=== PATIENT | male | born 1960 ===

== ENCOUNTER 2025-02-21 07:59 | Outpatient (AMB) | payer OTHER, SELFPAY ==
--- OUTSIDE RECORDS SUMMARY | 2025-02-21 08:05 | XMS_ITS | Clinical Summary ---
Author Organization [place] [id number] Address [address] [place] [phone] Phone Care Team Providers Care Fruit Grower Name Role Phone Diaz Jennings Primary Care Provider [phone] Allergies No known active allergies Medications atorvastatin (LIPITOR) 10 mg tablet Take 1 tablet (10 mg total) by mouth 1 (one) time each day. 90 tablet 3 12/13/2024 Active metoprolol succinate (TOPROL-XL) 50 mg 24 hr tablet Take 1 tablet (50 mg total) by mouth 1 (one) time each day. Do not crush or chew. 90 tablet 3 12/13/2024 Active lisinopril (PRINIVIL,ZESTRI L) 40 mg tablet Take 1 tablet (40 mg total) by mouth 1 (one) time each day. 30 each 5 12/13/2024 5 Active hydroCHLOROthiaz jonel (HYDRODIURIL) 25 mg tablet Take 1 tablet (25 mg total) by mouth 1 (one) time each day. 30 each 5 12/13/2024 5 Active cyclobenzaprine (FLEXERIL) 10 mg tablet Take 1 tablet (10 mg total) by mouth 2 (two) times a day if needed for muscle spasms for up to 5 days. 10 tablet 01/06/2025 Active Active Problems Problem Noted Date Diagnosed Date HTN (hypertension) 07/21/2024 Glaucoma 07/21/2024 Sebaceous cyst 07/21/2024 Overview (07/21/2024): scalp Prediabetes 07/21/2024 Sleep apnea 01/13/2020 Overview (07/21/2024): 01/21/2022 Home Sleep Study Shows findings consistant with severe sleep apnea and AHI 51 events per hour. His avrage oxygen was 94% but oxygen desi 78%. Patient had oxygen <88% more then 5% of the study. Last Assessment & Plan: Veena will use CPAP 6-9cm through [facility]. Dyslipidemia 02/26/2017 Nephrolithiasis 03/04/2013 Encounters Date Type Department Care Team Description 01/10/2025 9:45 AM EDT Office Visit Adult Medicine [address] [phone] Trudi Cunha PA Primary hypertension (Primary Dx); Prediabetes; Dyslipidemia; Sleep apnea, unspecified type; Screening for malignant neoplasm of colon 01/06/2025 7:02 AM EDT - 01/06/2025 8:29 AM EDT Emergency [facility] Emergency [address] [place] [address] Neck pain (Primary Dx) Discharge Disposition: Home or Self Care 12/13/2024 8:00 AM EST Office Visit Adult [address] [phone] Diaz Jennings PA Primary hypertension (Primary Dx); Screening for malignant neoplasm of colon; Nephrolithiasis; Prediabetes; Dyslipidemia; Sleep apnea, unspecified type; Need for prophylactic vaccination and inoculation against influenza from Last 3 Months Immunizations Name Administration Dates Next Due Influenza Quadravalent, MDCK , 0.5ml, preservative free (Flucelvax) 6mo and older 08/08/2021,07/17/2020,10/25/2019 Influenza trivalent, 0.5mL, preservative free (Fluarix; FluLaval; Fluzone) ages 6mo and older (Afluria) 3 years and older 07/17/2016 Influenza trivalent, MDCK, 0 .5mL, preservative free (Flucelvax) 6mo and older 12/13/2024 Influenza trivalent, with pr eservative (Fluzone; Afluria) 6mo and older 07/25/2015,07/22/2014,08/05/2013 Influenza, Unspecified 07/26/2016,12/02/2012 Pfizer SARS-CoV-2 COVID-19, mRNA, LNP-S, preservative free 03/02/2021,02/10/2021 Td Tetanus diptheria (Tdvax) 7yo and older 03/14 Tdap Tetanus diptheria acell ular pertussis (Boostrix; Adacel) 7yo and older 03/04/2013 Zoster recombinant (Shingrix ) 19yo and older 02/15/2018 Surgical History Surgery Date Site/Laterality Comments CHOLECYSTECTOMY 2011 PROCEDURE: HISTORICAL CHOLECYSTECTOMY COLONOSCOPY 03/25/13 PROCEDURE: HISTORICAL COLONOSCOPY; COMMENT: tics; repeat in ten yrs Medical History Medical History Date Comments HTN (hypertension) DX:HTN (hyper tension) Historical Medical DX DX:Cyst; C OMMENT: scalp Glaucoma DX:Glaucoma Nephrolithiasis 03/04/2013 DX:Nephrolithias is Dyslipidemia 02/26/2017 DX:Dyslipidemia Prediabetes DX:Prediabetes Sleep apnea 01/13/2020 DX:Sleep apnea Family History Medical History Relation Name Comments Other: denies Other Relation Name Status Comments Brother 1 Alive Brother 2 Alive Brother 3 Alive Brother 4 Alive Brother 5 Alive Brother 6 Alive Brother 7 Alive Brother 8 Alive Brother 9 Alive Brother 10 Alive Brother 11 Alive Father Alive Mother Alive Other Sister 1 Alive Sister 2 Alive Sister 3 Alive Sister 4 Alive Sister 5 Alive Social History Tobacco Use Types Packs/Day Years Used Date Smoking Tobacco: Never Smokeless Tobacco: Never Tobacco Cessation:Counseling Given: Not Answered Alcohol Use Standard Drinks/Week Comments No 0 (1 standard drink = 0.6 oz pur e alcohol) Housing Instability Answer Date Recorde d Are you worried that in the next 2 months you may not have stable housing? No 01/10/2025 Food Access & Nutrition Answer Date Rec orded Do you have access to a vari ety of food including fruits and vegetables? Yes 01/10/2025 Access to Healthcare Answer Date Record ed Within the last 3 months, ho w many times did you visit the emergency department for your medical care? 1 01/10/2025 Health Literacy Answer Date Recorded How often do you need to hav e someone help you when you read instructions, pamphlets, or other written material from your doctor or pharmacy? Never 01/10/2025 Caregiver: How often do you need to have someone help you when you read instructions, pamphlets, or other written material from your doctor or pharmacy? Not on file 01/10/2025 Financial Risk Answer Date Recorded How hard is it for you to pa y for the very basics like food, housing, medical care, and air conditioning / heating? Not very hard 01/10/2025 Transportation Answer Date Recorded Has the lack of transportati on kept you from meetings, work, or from getting things needed for daily living? No Has the lack of transportati on kept you from medical appointments or from getting medications? No 01/10/2025 Social Isolation Answer Date Recorded How often do you feel lonely or isolated from th ose around you? Never 01/10/2025 Food Risk Answer Date Recorded Within the past 12 months we worried whether our food would run out before we got money to buy more. Never true 01/10/2025 Within the past 12 months th e food we bought just didn't last and we didn't have money to get more. Never true 01/10/2025 Dependent Care Answer Date Recorded Do you need help finding or paying for care for your loved ones. For example, early childhood services coordinator or elderly care for an older adult? No 01/10/2025 Education Answer Date Recorded Do you think completing more education or training, like finishing a GED, going to college, or learning a trade, would be helpful for you? No 01/10/2025 Employment and Income Answer Date Recor ded During the last four weeks, have you been actively looking for work? No 01/10/2025 Living Situation Answer Date Recorded What is your living situation? 0 01/10/2025 Sex and Gender Information Value Date Recorded Sex Assigned at Male 01/06/2025 7:42 AM EDT Legal Sex Male 11:35 PM EST Gender Identity Male 01/06/2025 7:42 AM EDT Sexual Orientation Straight 01/06/2025 7: 42 AM EDT Obstetrics History Last Filed Vital Signs Vital Sign Reading Time Taken Comments Blood Pressure 120/70 01/10/2025 10:05 AM EDT Pulse 67 01/10/2025 10:05 AM EDT Temperature 36.2 ??C (97.1 ??F) 01/10/2025 10:05 AM E DT Respiratory Rate 16 01/10/2025 10:05 AM EDT Oxygen Saturation 97% 01/06/2025 4:00 AM EDT Inhaled Oxygen Concentration - - Weight 104 kg (228 lb 9.6 oz) 01/10/2025 10:05 A M EDT Height 167.6 cm (5' 6 ) 01/10/2025 10:05 AM EDT Body Mass Index 36.9 01/10/2025 10:05 AM EDT Plan of Treatment Upcoming Encounters Date Type Department Care Team (Late st Contact Info) Description 07/11/2025 8:00 AM EDT Office Visit Adult Medicine [facility] [address] [place] [address] Diaz Jennings PA [address] [place] [address] Health Maintenance Due Date Last Done Comments Pneumococcal Vaccine: 50+ Years (1 of 1 - PCV) 2011 Colorectal Cancer Screening: Colonoscopy 09/28/2022 HIV Screening 09/28/2022 COVID-19 Vaccine ( season) 2024 03/02/2021, 02/10/2021 Hypertension/CHF/CAD Annual BMP Blood Test 12/13/2025 12/13/2024, 02/23/2024, 02/23/2024 Depression Screening 01/10/2026 01/10/2025 Social Influencers of Health Screening 01/10/2026 01/10/2025 Cholesterol Screening (Lipid Panel) 12/13/2029 12/13/2024, 02/23/2024, 02/23/2024 DTaP,Tdap,and Td Vaccines (3 - Td or Tdap) 03/14/2033 03/14/2023, 03/04/2013 RSV Immunization Adult Patients (1 - 1-dose 75+ series) 2036 Zoster Vaccines Discontinued 02/15/2018 Hepatitis C Screening Completed 06/12/2019 Influenza Vaccine Completed 12/13/2024, , 07/17/2020, Additional history exists HIB Vaccines Aged Out No longer eligi ble based on patient's age to complete this topic HPV Vaccines Aged Out No longer eligi ble based on patient's age to complete this topic Hepatitis A Vaccines Aged Out No long er eligible based on patient's age to complete this topic Hepatitis B Vaccines Aged Out No long er eligible based on patient's age to complete this topic IPV Vaccines Aged Out No longer eligi ble based on patient's age to complete this topic MMR Vaccines Aged Out No longer eligi ble based on patient's age to complete this topic Meningococcal ACWY Vaccine Aged Out N o longer eligible based on patient's age to complete this topic Meningococcal B Vaccine Aged Out No l onger eligible based on patient's age to complete this topic Pneumococcal Vaccine: Pediatrics (0 to 5 Years) and At-Risk Patients (6 to 64 Years) Aged Out No longer eligible based on patient's age to complete this topic RSV Immunization Patients Under 20 months Aged Out No longer eligible based on patient's age to complete this topic Varicella Vaccines Aged Out No longer eligible based on patient's age to complete this topic Procedures Procedure Name Priority Date/Time Associated Diagnosis Comments XR CERVICAL SPINE 4-5 VIEWS STAT 01/06/2025 7:29 AM EDT NV PROTEIN ELECTROPHORETIC FRACTIONATION & QUANTITATION SERUM Routine 12/20/2024 3:34 PM EST Elevated serum protein level NV IMMUNOFIXATION ELECTROPHORESIS SERUM Routine 12/20/2024 3:34 PM EST Elevated serum protein level PROTEIN, TOTAL Routine 12/20/2024 3:34 PM EST Elevated serum protein level IMMUNOGLOBULINS IGG, IGA, IGM Routine 12/20/2024 3:34 PM EST Elevated serum protein level IMMUNOFIXATION ELECTROPHORESIS Routine 12/20/2024 3:34 PM EST Elevated serum protein level IMMUNOFIXATION ELECTROPHORESIS Routine 12/20/2024 3:34 PM EST Elevated serum protein level PROTEIN ELECTROPHORESIS, SERUM Routine 12/20/2024 3:34 PM EST Elevated serum protein level LIPID PANEL WITH REFLEX TO DIRECT LDL Routine 12/13/2024 8:54 AM EST Screening for malignant neoplasm of colon Primary hypertension COMPREHENSIVE METABOLIC PANEL Routine 12/13/2024 8:54 AM EST Screening for malignant neoplasm of colon Primary hypertension HEMOGLOBIN A1C Routine 12/13/2024 8:54 AM EST Screening for malignant neoplasm of colon Primary hypertension PROSTATE SPECIFIC ANTIGEN SCREEN Routine 12/13/2024 8:54 AM EST Screening for malignant neoplasm of colon Primary hypertension TESTOSTERONE, TOTAL Routine 12/13/2024 8 :54 AM EST Screening for malignant neoplasm of colon Primary hypertension THYROID STIMULATING HORMONE WITH REFLEX TO FREE T4 AND FREE T3 Routine 12/13/2024 8:54 AM EST Screening for malignant neoplasm of colon Primary hypertension HM HEPATITIS C SCREENING Routine 06/12/2019 from Last 3 Months or Most Recently Relevant to Health Maintenance Results * XR Cervical Spine 4-5 Views (01/06/2025 7:29 AM EDT) Anatomical Region Laterality Modality Spine, C-spine Radiographic Donna ging 01/06/2025 7:44 AM EDT Impressions 01/06/2025 7:45 AM EDT FINDINGS/IMPRESSION: Reversal of the normal cervical lordosis centered at C6. ??No fracture or prevertebral swelling. ??Multilevel degenerative facet arthropathy, uncovertebral spurring, and disc space height loss with endplate spurring. ??Right C3-4 foraminal stenosis secondary to uncovertebral spurring and facet arthropathy. ??No significant left foraminal stenosis. ??Lung apices are clear where visualized. ??Left greater than right carotid bulb calcifications. ??Open-mouth views demonstrate normal C1-2 alignment. -------- FINAL REPORT -------- Dictated By: JESUS REAGAN Dictated Date: 01/06/2025 07:44 ET Assigned Physician: JESUS REAGAN Reviewed and Electronically Signed By: JESUS REAGAN Signed Date: 01/06/2025 07:45 ET Workstation ID: [id number] Transcribed By: Self Edit Transcribed Date: 01/06/2025 07:44 ET Narrative 01/06/2025 7:45 AM EDT XR CERVICAL SPINE 4-5 VIEWS INDICATION: ??Pain TECHNIQUE: XR CERVICAL SPINE 4-5 VIEWS COMPARISON: No priors available. Procedure Note Jesus Reagan MD - 01/06/2025 XR CERVICAL SPINE 4-5 VIEWS INDICATION: Pain TECHNIQUE: XR CERVICAL SPINE 4-5 VIEWS COMPARISON: No priors available. IMPRESSION: FINDINGS/IMPRESSION: Reversal of the normal cervical lordosis centered atC6. No fracture or prevertebral swelling. Multilevel degenerative facetarthropathy, uncovertebral spurring, and disc space height loss withendplate spurring. Right C3-4 foraminal stenosis secondary touncovertebral spurring and facet arthropathy. No significant leftforaminal stenosis. Lung apices are clear where visualized. Left greaterthan right carotid bulb calcifications. Open-mouth views demonstratenormal C1-2 alignment. -------- FINAL REPORT -------- Dictated By: JESUS REAGAN Dictated Date: 01/06/2025 07:44 ET Assigned Physician: JESUS REAGAN Reviewed and Electronically Signed By: JESUS REAGAN Signed Date: 01/06/2025 07:45 ET Workstation ID: [id number] Transcribed By: Self Edit Transcribed Date: 01/06/2025 07:44 ET Kiera JONES IMG XR PROCEDURES Final Result * Pathologist Review Immunofixation (12/20/2024 3:34 PM EST) Pathologist Interpretation 12/21/2024 4:42 PM EST [facility] Blood Venous blood specimen / Unknown Venipuncture / Unknown 12/20/2024 3:34 PM EST 12/20/2024 3:34 PM EST [facility] Myesha Jennings ID LAB BLOOD ORDERABLES Jeannie l Result Performing Organization Address City/[facility]/ZIP Co de Phone Number [facility] [address] [place] [address], [place] [phone] * PATHOLOGIST REVIEW PROTEIN ELECTROPHORESIS (12/20/2024 3:34 PM EST) [facility] Pathologist Interpretation 12/23/2024 12:06 PM EST [facility] Blood Venous blood specimen / Unknown Venipuncture / Unknown 12/20/2024 3:34 PM EST 12/20/2024 3:34 PM EST [facility] Myesha Jennings ID LAB BLOOD ORDERABLES Jeannie l Result Performing Organization Address [facility] Co de Phone Number [facility] [address] [place] [address], [place] [phone] * Immunofixation electrophoresis serum (12/20/2024 3:34 PM EST) [facility] Immunofixation Result, Serum No monoclonal immunoglobulins detected. LAB CHEMISTRY METHOD 12/21/2024 4:42 PM EST [facility] Blood Venous blood specimen / Unknown Venipuncture / Unknown 12/20/2024 3:34 PM EST 12/20/2024 3:34 PM EST [facility] LAB BLOOD ORDERABLES Jeannie l Result Performing Organization Address City/[facility]/ZIP Co de Phone Number [facility] [address] [place] [address], [place] [phone] * (ABNORMAL) Immunoglobulins IgG, IgA, IgM (12/20/2024 3:34 PM EST) [facility] Total IgG 1,400 549 - 1,584 mg/dL LAB CHEMISTRY METHOD 12/20/2024 6:59 PM [facility] IgA 435(H) 61 - 348 mg/dL LAB CHEMISTRY METHOD 12/20/2024 6:59 PM [facility] IgM 58 23 - 259 mg/dL LAB CHEMISTRY METHOD 12/20/2024 6:59 PM [facility] Blood Venous blood specimen / Unknown Venipuncture / Unknown 12/20/2024 3:34 PM EST 12/20/2024 3:34 PM EST us Diaz JONES LAB BLOOD ORDERABLES Jeannie santana Result [facility] [address] [place] [address], [place] [phone] * (ABNORMAL) Protein electrophoresis, serum (12/20/2024 3:34 PM EST) Total Protein 8.0 6.0 - 8.0 g/dL LAB CHEMISTRY METHOD 12/23/2024 12:06 PM [facility] Albumin, Serum 4.3(H) 2.9 - 4.1 g/dL LAB CHEMISTRY METHOD 12/23/2024 12:06 PM [facility] Alpha 1 Globulin (g/dL) 0.2 0.1 - 0.5 g/dL LAB CHEMISTRY METHOD 12/23/2024 12:06 PM [facility] Alpha 2 Globulin (g/dL) 1.1 0.7 - 1.5 g/dL LAB CHEMISTRY METHOD 12/23/2024 12:06 PM [facility] Beta (g/dL) 1.2 0.7 - 1.5 g/dL LAB CHEMISTRY METHOD 12/23/2024 12:06 PM [facility] Gamma Globulin (g/dL) 1.3 0.7 - 1.9 g/dL LAB CHEMISTRY METHOD 12/23/2024 12:06 PM [facility] SPEP Interpretation No M-Octaviano seen. Increased levels of albumin may be seen in acute dehydratio n. ? LAB CHEMISTRY METHOD 12/23/2024 12:06 PM EST [facility] Blood Venous blood specimen / Unknown Venipuncture / Unknown 12/20/2024 3:34 PM EST 12/20/2024 3:34 PM EST Diaz JONES LAB BLOOD ORDERABLES Jeannie l Result [facility] [address] [place] [address], [place] [phone] * Protein, total (12/20/2024 3:34 PM EST) Total Protein 8.0 6.0 - 8.0 g/dL LAB CHEMISTRY METHOD 12/20/2024 7:26 PM EST [facility] Blood Venous blood specimen / Unknown Venipuncture / Unknown 12/20/2024 3:34 PM EST 12/20/2024 3:34 PM EST Diaz JONES LAB BLOOD ORDERABLES Jeannie l Result Performing Organization Address [facility]/ZIP Co de Phone Number [facility] [address] [place] [address], [place] [phone] * Prostate specific antigen screen (12/13/2024 8:54 AM EST) PSA 0.92 0.00 - 4.00 ng/mL LAB CHEMISTRY METHOD 12/13/2024 2:20 PM EST [facility] Blood Venous blood specimen / Unknown Venipuncture / Unknown 12/13/2024 8:54 AM EST 12/13/2024 8:54 AM EST Narrative [facility] - 12/13/2024 2:20 PM EST The Siemens Advia Centaur Chemiluminescent Immunoassay is used. Results obtained with different assay methods or kits cannot be used interchangeably. Results cannot be interpreted as absolute evidence of the presence or absence of malignant disease. [facility] Myesha Jennings ID LAB BLOOD ORDERABLES Jeannie l Result Performing Organization Address City/[facility]/ZIP Co de Phone Number [facility] [address] [place] [address], [place] [phone] * Thyroid stimulating hormone with reflex to free t4 and free t3 (12/13/2024 8:54 AM EST) TSH 3.20 0.40 - 4.00 mcIU/mL LAB CHEMISTRY METHOD 12/13/2024 1:28 PM [facility] Blood Venous blood specimen / Unknown Venipuncture / Unknown 12/13/2024 8:54 AM EST 12/13/2024 8:54 AM EST [facility] BLOOD ORDERABLES Jeannie l Result Performing Organization Address [facility]/ZIP Co de Phone Number [facility] [address] [place] [address], [place] [phone] * (ABNORMAL) Lipid panel with reflex to direct LDL (12/13/2024 8:54 AM EST) Cholesterol 175 0 - 200 mg/dL LAB CHEMISTRY METHOD 12/13/2024 1:30 PM [facility] Triglycerides 99 0 - 150 mg/dL LAB CHEMISTRY METHOD 12/13/2024 1:30 PM [facility] HDL 52 >=40 mg/dL LAB CHEMISTRY METHOD 12/13/2024 1:30 PM [facility] LDL Calculated 103(H) 0 - 100 mg/dL LAB CHEMISTRY METHOD 12/13/2024 1:30 PM [facility] VLDL Cholesterol Omkar 19.8 mg/dL LAB CHEMISTRY METHOD 12/13/2024 1:30 PM [facility] Non HDL Chol. (LDL+VLDL) 123 <145 mg/dL LAB CHEMISTRY METHOD 12/13/2024 1:30 PM EST [facility] Chol/HDL Ratio 3.4 0.0 - 4.4 LAB CHEMISTRY METHOD 12/13/2024 1:30 PM EST [facility] Blood Venous blood specimen / Unknown Venipuncture / Unknown 12/13/2024 8:54 AM EST 12/13/2024 8:54 AM EST Diaz JONES LAB BLOOD ORDERABLES Jeannie l Result [facility] [address] [place] [address], [place] [phone] * Testosterone, total (12/13/2024 8:54 AM EST) Testosterone 410 229 - 902 ng/dL LAB CHEMISTRY METHOD 12/13/2024 1:28 PM EST [facility] Blood Venous blood specimen / Unknown Venipuncture / Unknown 12/13/2024 8:54 AM EST 12/13/2024 8:54 AM EST Diaz JONES LAB BLOOD ORDERABLES Jeannie l Result [facility] [address] [place] [address], [place] [phone] * Hemoglobin A1c (12/13/2024 8:54 AM EST) Hemoglobin A1C 5.8 <6.5 % LAB CHEMISTRY METHOD 12/13/2024 1:54 PM EST [facility] Mean Bld Glu Estim. 120 mg/dL LAB CHEMISTRY METHOD 12/13/2024 1:54 PM [facility] Blood Venous blood specimen / Unknown Venipuncture / Unknown 12/13/2024 8:54 AM EST 12/13/2024 8:54 AM EST us Diaz JONES LAB BLOOD ORDERABLES Jeannie santana Result [facility] [address] [place] [address], [place] [phone] * (ABNORMAL) Comprehensive metabolic panel (12/13/2024 8:54 AM EST) Sodium 141 133 - 145 mmol/L LAB CHEMISTRY METHOD 12/13/2024 1:30 PM [facility] Potassium 3.8 3.5 - 5.5 mmol/L LAB CHEMISTRY METHOD 12/13/2024 1:30 PM [facility] Chloride 109 96 - 110 mmol/L LAB CHEMISTRY METHOD 12/13/2024 1:30 PM [facility] CO2 24 21 - 32 mmol/L LAB CHEMISTRY METHOD 12/13/2024 1:30 PM [facility] Anion Gap 8 3 - 11 LAB CHEMISTRY METHOD 12/13/2024 1:30 PM [facility] Glucose 107(H) 70 - 100 mg/dL LAB CHEMISTRY METHOD 12/13/2024 1:30 PM [facility] BUN 21 5 - 25 mg/dL LAB CHEMISTRY METHOD 12/13/2024 1:30 PM [facility] Creatinine 1.42(H) 0.70 - 1.30 mg/dL LAB CHEMISTRY METHOD 12/13/2024 1:30 PM [facility] eGFR 56(L) >=60 mL/min/1. 73m2 LAB CHEMISTRY METHOD 12/13/2024 1:30 PM [facility] Comment:Calculation based on the??Chronic Kidney Disease Epidemiology Collaboration (CKD-EPI) equation refit??without adjustment for race. BUN/Creatinine Ratio 14.8 LAB CHEMISTRY METHOD 12/13/2024 1:30 PM [facility] Calcium 9.0 8.5 - 10.5 mg/dL LAB CHEMISTRY METHOD 12/13/2024 1:30 PM [facility] AST (SGOT) 20 10 - 42 unit/L LAB CHEMISTRY METHOD 12/13/2024 1:30 PM [facility] ALT (SGPT) 32 10 - 60 unit/L LAB CHEMISTRY METHOD 12/13/2024 1:30 PM [facility] Alkaline Phosphatase 55 42 - 121 unit/L LAB CHEMISTRY METHOD 12/13/2024 1:30 PM [facility] Total Protein 8.3(H) 6.0 - 8.0 g/dL LAB CHEMISTRY METHOD 12/13/2024 1:30 PM [facility] Albumin 4.2 3.2 - 5.0 g/dL LAB CHEMISTRY METHOD 12/13/2024 1:30 PM [facility] Total Bilirubin 1.2 0.0 - 1.4 mg/dL LAB CHEMISTRY METHOD 12/13/2024 1:30 PM [facility] Blood Venous blood specimen / Unknown Venipuncture / Unknown 12/13/2024 8:54 AM EST 12/13/2024 8:54 AM EST Diaz JONES LAB BLOOD ORDERABLES Jeannie l Result [facility] [address] [place] [address], * Hepatitis C Screening (06/12/2019) Pathologist [facility] Hepatitis C Screening Abstracted Historical Provider HEALTH MAINTENANCE Final Result from Last 3 Months or Most Recently Relevant to Health Maintenance Insurance [employer] Care Teams Fruit Grower Relationship Specialty Start Date End Date Diaz Jennings PA [address] [place] [phone] PCP - General Internal Medicine 02/06/21
--- OUTSIDE RECORDS SUMMARY | 2025-02-21 08:06 | XMS_ITS | Data Portability ---
Author Organization [employer] s, [address] Address [address] [place] [address] Assessment No assessment recorded. Plan of Treatment Reminders Order Date Submit Date Provider Last Modified By Organization Details Last Modified Time Details Appointments None record ed. Lab None record ed. Referral None record ed. Procedures None record ed. Surgeries None record ed. Imaging None record ed. Medication Orders None record ed. Patient TargetsNo targets recorded. Patient InstructionsNo instructions recorded. Reason for Referral None Reported. Procedures Surgical History Date Name Laterality Status Provider Name and Address Organization Details Recorded Time 3 OC-DOT PHYSICAL completed FRED ANEESH [facility] 12/24/2022 12:46:44 2 OC-DOT PHYSICAL completed Billie Easley [facility] 09/26/2022 16:07:58 Imaging Results None recorded. Procedure Notes None recorded. Medical Equipment None Reported. Medications Name Sig Start Date Stop Date Status Note LastModified by Organization Details LastModified Time atorvastatin 10 mg tablet TAKE 1 TABLET BY MOUTH DAILY active Not Available Not Available Not Available lisinopril 20 mg-hydrochlo rothiazide 12.5 mg tablet TAKE 1 TABLET BY MOUTH DAILY active Not Available Not Available Not Available metoprolol succinate ER 50 mg tablet,exten ded release 24 hr TAKE 1 TABLET BY MOUTH DAILY active Not Available Not Available Not Available doxycycline monohydrate 100 mg tablet TAKE 1 TABLET BY MOUTH TWICE DAILY FOR 7 DAYS FOR INFECTION active Not Available Not Available No t Available sildenafil 100 mg tablet TAKE 1/4 TO 1 TABLET BY MOUTH 45-60 MINUTES PRIOR TO INTERCOURSE ON AN EMPTY STOMACH active Not Available Not Available No t Available Vitals None Recorded Social History None recorded. Functional Status None recorded. Mental Status None recorded. Family History Nothing Reported. Medical History No medical history recorded. Past Encounters Encounter ID Performer Location Encounter Start Date Encounter Closed Date Diagnosis/Indication Diagnosis SNOMED-CT Code Diagnosis ICD10 Code Diagnosis Note [id number] [facility] [address] [address] 02/17/2019 13:26:47 02/17/2019 13:48:36 [id number] [address] [place] [address] 01/07/2022 10:49:38 01/07/2022 11:19:16 [id number] [address] [place] [address] 07/26/2020 08:46:27 07/26/2020 10:33:03 [id number] [facility] [address] [address] 05/14/2019 15:30:34 05/14/2019 17:16:56 [facility] [address] [address] 12/02/2019 11:37:10 12/02/2019 12:43:37 [id number] [address] [place] [address] 10/23/2018 10:27:04 10/23/2018 12:14:37 [id number] [address] [place] [address] 04/26/2022 11:14:57 04/26/2022 12:50:19 [id number] [address] [place] [address] 12/31/2021 09:10:44 12/31/2021 09:40:12 [address] [place] [address] 07/29/2019 14:44:53 07/29/2019 17:13:06 [id number] [facility] [address] [place] [address] 11/06/2018 11:11:38 11/06/2018 11:56:31 [id number] [address] [place] [address] 01/24/2022 12:44:06 01/24/2022 12:56:53 [id number] [address] [place] [address] 11/15/2017 19:42:15 11/15/2017 20:37:11 [id number] ROBERT ARTIS [address] [facility] [address] [place] [address] 09/26/2022 11:12:14 09/26/2022 17:55:13 Physical examination [id number] Z02.89 Documentat ion for this visit can be found on the electronic DOT form or scanned copy The patient has elevated blood pressure today during the visit that is outside range. His PCP will not refill his B/P medication s and will not see him. I gave him 3 months, since his DOT is set to in 3 days. His appointmen t is September 30. He reports no symptoms. Brought Sleep CPAP study. 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 [id number] Z02.4 Physical examination [id number] Z02.4 Health Concerns Section Related Observation LastModified by Organization Detai ls LastModified Time None Recorded Concern Status LastModified by Organization Details LastModified Time None Recorded Advance Directives Directive None Recorded Payers Encounter Date Sequence Insurance Name Policy Number Policy Baugh Covered Member ID Baugh Member ID Guarantor Name 01/07/2022 1 [employer] [id number] 03 Hector Ontiveros [id number] Hector Ontiveros 04/26/2022 1 [employer] [id number] 03 Hector Ontiveros [id number] Hector Ontiveros 09/26/2022 [employer] [id number] Hector Ontiveros 12/24/2022 [employer] [id number] Hector Ontiveros
--- NOTE | 2025-02-21 08:08 | A.OFFVIS_ITS ---
Intake Visit Reasons: Hx of kidney stones Intake Note: New patient presents today for initial visit for history of kidney stones Urology Medication:None Blood Thinner:None Antibiotic Allergies:None Allergies No Known Allergies Allergy (Verified 02/21/25 10:33) Medication List - Last Reconciled 02/21/25 by CLINTON Gutierrez atorvastatin 10 mg PO DAILY hydrochlorothiazide 25 mg PO DAILY lisinopril 40 mg PO DAILY metoprolol succinate ER 50 mg PO DAILY HPI Comments Details: Hector is a very pleasant 64-year-old male patient of Dr. Jennings. He has a past medical history of sebaceous cyst of the scalp, glaucoma, sleep apnea, dyslipidemia, prediabetes, nephrolithiasis, and hypertension. He presents to the office today as a new patient for erectile dysfunction as well as nephrolithiasis. In discussion with the patient today reports previously following up with a urologist in the past for longstanding history of nephrolithiasis over 10 years ago never requiring surgical intervention. He reports following up with to urologist regarding ongoing issues he has been experiencing with ED however is looking for a 2nd opinion in looking to establish urology care. He currently denies any bothersome urinary issues. He discusses his main concern is his ongoing issues with erectile dysfunction. He reports he is able to obtain an erection however feels maintaining an erection to be difficult. He reports being able to obtain an at times maintain erections with masturbation however during sexual activity finds it more difficult. We discussed at length potential causes of ED as well as further treatment options and risks and benefits of these treatment options. We discussed lifestyle modifications to assist with ED as well as penile pumps in rings. All questions were answered. He denies urinary urgency, urinary frequency, incontinence, nocturia, hematuria, dysuria, foul smelling urine, changes to urinary stream, flank pain, fever, and or chills. He is happy with his current voiding parameters. In office urinalysis results reviewed with the patient today. When asked he denies any previous trauma. He otherwise offers no other issues or concerns at this time. History of Present Illness The patient is a 64-year-old male presenting with concerns of nephrolithiasis and erectile dysfunction. He recounts a more than ten-year history of nephrolithiasis but remains asymptomatic. No surgical interventions were required, and he reports no present renal or bladder symptoms. Regarding erectile dysfunction, the patient has been experiencing difficulties with erection maintenance. Past evaluations have included prescription PDE-5 inhibitors without consistent use and normal testosterone levels. Plan I will conduct a renal ultrasound to ascertain the status of the patient's historical kidney stones, as the patient currently reports no symptoms. For erectile dysfunction, I have prescribed tadalafil Cialis), beginning with 5 mg once daily, coupled with a supplemental 10 mg dose an hour prior to planned intercourse. This intervention was determined based on prior partial responsiveness and absence of contraindicating issues, with discussed lifestyle adaptations potentially enhancing outcome. Follow-up is set in three months to evaluate imaging results and assess the efficacy and side effects of the treatment, planning further intervention based on findings. Patient was informed and verbally consented to the use of an ambient scribe for clinic note documentation during this visit. Discussion Notes I discussed with the patient that while he currently does not express symptoms of nephrolithiasis, an ultrasound will assess the current status of potential calculi. For erectile dysfunction, we explored the multifactorial nature and reviewed that a regular usage of PDE-5 inhibitors may enhance erectile response, accompanied by potential side effects. I deliberated the potential necessity of further diagnostics if no improvement is observed. Risks of prolonged non- treatment were outlined, and the benefits of medication adherence alongside lifestyle factors were accentuated. Consent was implied with the patient agreeing to a prescription regimen and follow-up strategy. [facility] Medical History Sebaceous cyst Glaucoma Sleep apnea Dyslipidemia Pre-diabetes Nephrolithiasis Screening for malignant neoplasm of colon Primary hypertension Review of Systems Eyes Reports as per HPI ENT Reports no additional complaints Card Reports as per HPI Resp Reports as per HPI GI Reports as per HPI Reports as per HPI Musc Reports no additional complaints Neuro Reports no additional complaints Psych Reports no additional complaints Endo Reports as per HPI Edgar/Lymph Reports no additional complaints Aller/Immun Reports no additional complaints Physical Exam Const General: cooperative, healthy appearing, comfortable, no acute distress, well developed, alert and awake Nutritional Appearance: overweight Orientation/consciousness: patient oriented x3 Limitations: no limitations HEENT Head: Yes normal to inspection, Yes normocephalic and Yes atraumatic Ears: hearing grossly normal bilaterally Eyes General: appearance normal, both eyes and all related structures Neck Neck: Yes normal visual inspection and Yes trachea midline Chest Chest palpation & inspection: normal inspection of the chest Resp Effort & Inspection: normal respiratory effort and able to speak in complete sentences Cardio Rate: regular rate GI Inspection: Yes normal to inspection General: Yes no CVA tenderness Back/Spine/Pelvis Back: no CVA tenderness Skin General skin exam: no rashes or lesions noted Neuro General: patient oriented x3 Extrem General: Yes normal to inspection Psych Appearance: grossly normal and well kempt Mental Status: mental status grossly normal Speech and movement: Normal speech and movement present and Clear speech present Affect: normal affect Attitude: cooperative Thought process: Normal thought process present Thought content: Normal thought content present Insight: Fair insight present (Psych) Judgement: Fair judgement present (Psych) Results AMB Urinalysis, Automated UA Leukoctes 0 Mable/uL Last Edit by Belle Grace on 02/21/25 08:20 UA Nitrite Negative Last Edit by Belle Grace on 02/21/25 08:20 UA Urobilinogen 0.2 mg/dL Last Edit by Belle Grace on 02/21/25 08:20 UA Protein 15 mg/dL Last Edit by Belle Grace on 02/21/25 08:20 UA pH 5.5 Last Edit by Belle Grace on 02/21/25 08:20 UA Blood 0 Fredrick/uL Last Edit by Belle Grace on 02/21/25 08:20 UA Specific [place] 1.020 Last Edit by Belle Grace on 02/21/25 08:20 UA Ketone Negative Last Edit by Belle Grace on 02/21/25 08:20 UA Bilirubin 0 mg/dL Last Edit by Belle Grace on 02/21/25 08:20 UA Glucose 0 mg/dL Last Edit by Belle Grace on 02/21/25 08:20 Results Reviewed Results Reviewed: Laboratory Last Values Urine pH (Auto) 5.5 02/21/25 08:07 Specific [place] (Auto) 1.020 02/21/25 08:07 Urine Protein (Auto) 15 mg/dL 02/21/25 08:07 Glucose (UA)(Auto) 0 mg/dL 02/21/25 08:07 Urine Ketones (Auto) Negative 02/21/25 08:07 Urine Blood (Auto) 0 Fredrick/uL 02/21/25 08:07 Urine Nitrite (Auto) Negative 02/21/25 08:07 Urine Bilirubin (Auto) 0 mg/dL 02/21/25 08:07 Urine Urobilinogen (Auto) 0.2 mg/dL 02/21/25 08:07 Leukocyte Esterase (Auto) 0 Mable/uL 02/21/25 08:07 Assessment & Plan Assessment & Plan (1) Erectile dysfunction: Code(s): N52.9 - Male erectile dysfunction, unspecified Category: Medical (2) Calculus of kidney: Code(s): N20.0 - Calculus of kidney Plan In office urinalysis results reviewed with the patient today; as noted above. We discussed at length potential causes of ED as well as further treatment options and risks and benefits of these treatment options. Will obtain renal ultrasound for further assessment evaluation. Will obtain PSA and testosterone free and total for further assessment evaluation. We discussed lifestyle modifications to assist with ED as well as overall health and well-being. Start Cialis 5 mg daily. Prescription provided for p.r.n. dosing. He currently denies any bothersome urinary issues or concerns. He reports be happy with current voiding parameters. We discussed importance of adequate hydration relation to nephrolithiasis as well as overall health and well-being. Follow-up in 3 months with imaging and labs; or sooner with any issues, concerns, and or questions Orders: Orders AMB Urinalysis Automated Today Z13.9 - Encounter for screening, unspecified Prostate Specific Antigen Today N52.9 - Male erectile dysfunction, unspecified Testosterone, Free/Total Today N52.9 - Male erectile dysfunction, unspecified US renal BI Today N20.0 - Calculus of kidney Hemoglobin A1c Today E11.9 - Type 2 diabetes mellitus without complications Medications: New tadalafil (Cialis) Take 1-2 tablets approximately 30min before sexual activity; do not use more than 1-2 tablets per 24hrs [id number] [facility] [id number] Member [id number] 10 mg PO .PRN 30 days PRN 20 tabs 4RF sexual activity tadalafil (Cialis) [id number] [facility] [id number] Member [id number] 5 mg PO DAILY 90 days 90 tabs 1RF Patient Instructions: The patient had an opportunity to ask questions regarding the treatment plan. All questions were answered. Physical exam, labs, and imaging were discussed and reviewed in detail. As well as risks, benefits, and discussion of treatment choices. No major barriers to understanding were identified. The patient expressed understanding and agreement with the above treatment plan. The patient was made aware they should contact our office by phone for worsening of their current condition, the appearance of new symptoms, or with any questions or concerns. Compliance is encouraged with any medications and follow up testing that is ordered. It is a privilege to be allowed the opportunity to participate in? your urological care.? Again, if you have any questions or concerns If you have any questions or concerns please do not hesitate to contact me. The office is [phone]. This note is constructed using voice recognition software. While every effort has been made to ensure accuracy accounts payable clerk errors may have been included. Yours sincerely, CLINTON Gutierrez Coding Level of Care Code New Pt Level 4 (12709) Diagnoses Erectile dysfunction N52.9 Calculus of kidney N20.0
== END 2025-02-21 08:48 | disposition home or self-care (01) ==
LOC: HO.HUSH 08:00
PROVIDERS: PCP Physician Assistant Medical; Visit Provider Nurse Practitioner Family
DX: N52.9 Male erectile dysfunction, unspecified (principal); N20.0 Calculus of kidney; Z13.9 Encounter for screening, unspecified
CPT/HCPCS: 99204

== ENCOUNTER → 2025-02-21 07:59 | Outpatient (BNVA) | payer OTHER, SELFPAY | PROVIDERS: PCP Physician Assistant Medical; Visit Provider Nurse Practitioner Family | DX: N20.0 Calculus of kidney (principal); N52.9 Male erectile dysfunction, unspecified; E11.9 Type 2 diabetes mellitus without complications | CPT/HCPCS: 81003 ==

== ENCOUNTER 2025-06-06 09:20 | Outpatient (REF) | payer OTHER, SELFPAY ==
--- OUTSIDE RECORDS SUMMARY | 2025-06-06 09:53 | XMS_ITS ---
Author Name [facility] Organization Unknown Care Team Organization Name Specialty Phone Email Start Date End Da te [facility] 12/25/2022 06/07/2024 [facility] 08/27/2022 [facility]
--- OUTSIDE RECORDS SUMMARY | 2025-06-06 09:53 | XMS_ITS | Clinical Summary ---
Author Organization [facility] [address] [place] [address] [place] [phone] Phone Care Team Providers Care Exit Booth Agent Name Role Phone Diaz Jennings Primary Care Provider [phone] Allergies No known active allergies Medications atorvastatin (LIPITOR) 10 mg tablet Take 1 tablet (10 mg total) by mouth 1 (one) time each day. 90 tablet 3 12/13/2024 Active metoprolol succinate (TOPROL-XL) 50 mg 24 hr tablet Take 1 tablet (50 mg total) by mouth 1 (one) time each day. Do not crush or chew. 90 tablet 3 12/13/2024 Active lisinopril (PRINIVIL,ZESTR IL) 40 mg tablet Take 1 tablet (40 mg total) by mouth 1 (one) time each day. 30 each 12/13/2024 5 Active hydroCHLOROthia zide (HYDRODIURIL) 25 mg tablet Take 1 tablet (25 mg total) by mouth 1 (one) time each day. 30 each 12/13/2024 5 Active cyclobenzaprine (FLEXERIL) 10 mg tablet Take 1 tablet (10 mg total) by mouth 2 (two) times a day if needed for muscle spasms for up to 5 days. 10 tablet 01/06/2025 Active lisinopril-hydr oCHLOROthiazide (PRINZIDE,ZESTO RETIC) 20-12.5 mg per tablet Take 1 tablet by mouth 1 (one) time each day. Active tadalafiL (CIALIS) 10 mg tablet TAKE 1- 2 TABLETS BY MOUTH 30 MINUTES PRIOR TO SEXUAL ACTIVITY. 02/21/2025 Active tadalafiL (CIALIS) 5 mg tablet Take 1 tablet (5 mg total) by mouth 1 (one) time each day. 02/22/2025 Active Active Problems Problem Noted Date Diagnosed [...] Encounters Date Type Department Care Team Description 05/23/2025 Telephone Pulmongy [facility] [address] [phone] Cindy Garcia MA Sleep Study 05/19/2025 Telephone Adult Medicine [address] [phone] Diaz Jennings PA Referral (Urology referral) [facility] [address] [phone] Lorri Mondragon MD Sleep Study 03/28/2025 8:00 AM EDT Consult [address] [phone] Lorri Mondragon MD Obstructive sleep apnea (Primary Dx); Morbid obesity (CMS/HCC V24, CMS/HCC V28); Primary hypertension; Sleep apnea, unspecified type 03/25/2025 Telephone Adult Medicine [address] [phone] Diaz Jennings PA Referral from Last 3 Months Immunizations Name Administration [...] 6mo and older 07/25/2015,07/22/2014,08/05/2013 Influenza, Unspecified 07/26/2016,12/02/2012 [employer] SARS-CoV-2 COVID-19, mRNA, LNP-S, preservative free 03/02/2021,02/10/2021 [...] care for your loved ones. For example, child care leader or elderly care for an older adult? [...] Sign Reading Time Taken Comments Blood Pressure 174/95 05/23/2025 9:33 AM EDT Pulse 72 05/23/2025 9:33 AM EDT Temperature 36.7 C (98 F) 05/23/2025 9:33 AM EDT Respiratory Rate 20 05/23/2025 9:33 AM EDT Oxygen Saturation 100% 05/23/2025 9:33 AM EDT Inhaled Oxygen Concentration - - Weight 111 kg (245 lb) 05/23/2025 9:33 AM EDT Height 167.6 cm (5' 6 ) 05/23/2025 9:33 AM EDT Body Mass Index 39.54 05/23/2025 9:33 AM EDT Plan of Treatment Upcoming Encounters Date Type Department Care Team (Late st Contact Info) Description 07/11/2025 8:00 AM EDT Office Visit Adult Medicine [facility] [address] [place] [phone] Diaz Jennings, PA [address] [place] [address] 07/25/2025 10:00 AM EDT [facility] [address] [phone] Lorri Mondragon MD [address] [phone] Health Maintenance Due Date Last Done Comments Pneumococcal Vaccine: 50+ Years (1 of 1 - PCV) 2011 Colorectal Cancer Screening: Colonoscopy 09/28/2022 HIV Screening 09/28/2022 COVID-19 Vaccine (3 - 2023- season) 2024 03/02/2021, 02/10/2021 Influenza Vaccine (#1) 2025 , 08/08/2021, 07/17/2020, Additional history exists Hypertension/CHF/CAD Annual BMP Blood Test 12/13/2025 12/13/2024, 02/23/2024, 02/23/2024 Social Influencers of Health Screening 01/10/2026 01/10/2025 Cholesterol Screening (Lipid Panel) 12/13/2029 12/13/2024, 02/23/2024, 02/23/2024 DTaP,Tdap,and Td Vaccines (3 - Td or Tdap) 03/14/2033 03/14/2023, 03/04/2013 RSV Immunization Adult Patients (1 - 1-dose 75+ series) 2036 Zoster Vaccines Discontinued 02/15/2018 Hepatitis C Screening Completed 06/12/2019 Depression Screening Completed 01/10/2025 HIB Vaccines Aged Out No longer eligi [...] Procedure Name Priority Date/Time Associated Diagnosis Comments COMPREHENSIVE METABOLIC PANEL Routine 12/13/2024 8:54 AM EST Screening for malignant neoplasm of colon Primary hypertension LIPID PANEL WITH REFLEX TO DIRECT LDL Routine 12/13/2024 8:54 AM EST Screening for malignant neoplasm of colon Primary hypertension HEPATITIS C SCREENING Routine 06/12/2019 from Last 3 Months or Most Recently Relevant to Health Maintenance Results * (ABNORMAL) Lipid panel with reflex to direct LDL (12/13/2024 8:54 AM EST) Cholesterol 175 0 - 200 mg/dL LAB CHEMISTRY METHOD 12/13/2024 1:30 PM EST [facility] Triglycerides 99 0 - 150 mg/dL LAB CHEMISTRY METHOD 12/13/2024 1:30 PM EST [facility] HDL 52 >=40 mg/dL LAB CHEMISTRY METHOD 12/13/2024 1:30 PM EST [facility] LDL Calculated 103(H) 0 - 100 mg/dL LAB CHEMISTRY METHOD 12/13/2024 1:30 PM EST [facility] VLDL Cholesterol Omkar 19.8 mg/dL LAB CHEMISTRY METHOD 12/13/2024 1:30 PM EST [facility] Non HDL Chol. (LDL+VLDL) 123 <145 mg/dL LAB CHEMISTRY METHOD 12/13/2024 1:30 PM EST [facility] Chol/HDL Ratio 3.4 0.0 - 4.4 LAB CHEMISTRY METHOD 12/13/2024 1:30 PM EST [facility] Blood Venous blood specimen / Unknown Venipuncture / Unknown 12/13/2024 8:54 AM EST 12/13/2024 8:54 AM EST us Diaz JONES LAB BLOOD ORDERABLES Jeannie l Result [facility] [address] [place] [address], * (ABNORMAL) Comprehensive metabolic panel (12/13/2024 8:54 AM EST) Sodium 141 133 - 145 mmol/L LAB CHEMISTRY METHOD 12/13/2024 1:[address] [facility] Potassium 3.8 3.5 - 5.5 mmol/L LAB CHEMISTRY METHOD 12/13/2024 1:[address] [facility] Chloride 109 96 - 110 mmol/L LAB CHEMISTRY METHOD 12/13/2024 1:[address] [facility] CO2 24 21 - 32 mmol/L LAB CHEMISTRY METHOD 12/13/2024 1:[address] [facility] Anion Gap 8 3 - 11 LAB CHEMISTRY METHOD 12/13/2024 1:[address] [facility] Glucose 107(H) 70 - 100 mg/dL LAB CHEMISTRY METHOD 12/13/2024 1:[address] [facility] BUN 21 5 - 25 mg/dL LAB CHEMISTRY METHOD 12/13/2024 1:[address] [facility] Creatinine 1.42(H) 0.70 - 1.30 mg/dL LAB CHEMISTRY METHOD 12/13/2024 1:[address] [facility] eGFR 56(L) >=60 mL/min/1. 73m2 LAB CHEMISTRY METHOD 12/13/2024 1:[address] [facility] Comment:Calculation based on the Chronic Kidney Disease Epidemiology Collaboration (CKD-EPI) equation refit without adjustment for race. BUN/Creatinine Ratio 14.8 LAB CHEMISTRY METHOD 12/13/2024 1:[address] [facility] Calcium 9.0 8.5 - 10.5 mg/dL LAB CHEMISTRY METHOD 12/13/2024 1:[address] [facility] AST (SGOT) 20 10 - 42 unit/L LAB CHEMISTRY METHOD 12/13/2024 1:[address] [facility] ALT (SGPT) 32 10 - 60 unit/L LAB CHEMISTRY METHOD 12/13/2024 1:[address] [facility] Alkaline Phosphatase 55 42 - 121 unit/L LAB CHEMISTRY METHOD 12/13/2024 1:30 PM EST [facility] Total Protein 8.3(H) 6.0 - 8.0 g/dL LAB CHEMISTRY METHOD 12/13/2024 1:30 PM EST [facility] Albumin 4.2 3.2 - 5.0 g/dL LAB CHEMISTRY METHOD 12/13/2024 1:30 PM EST [facility] Total Bilirubin 1.2 0.0 - 1.4 mg/dL LAB CHEMISTRY METHOD 12/13/2024 1:30 PM EST [facility] Blood Venous blood specimen / Unknown Venipuncture / Unknown 12/13/2024 8:54 AM EST 12/13/2024 8:54 AM EST Diaz JONES LAB BLOOD ORDERABLES Jeannie l Result [facility] [address] [place] [address], * Hepatitis C Screening (06/12/2019) Pathologist [facility] Hepatitis C Screening Abstracted Historical Provider HEALTH MAINTENANCE Final Result from Last 3 Months or Most Recently Relevant to Health Maintenance Insurance [facility] [place] [phone] [facility] [employer] Care Teams Exit Booth Agent Relationship Specialty Start Date End Date Diaz Jennings PA [address] [place] [id number] PCP - General Internal Medicine 02/06/21
[2025-06-06 10:19] LABS: Hemoglobin A1C 154.5750 umol/L; Total Hemoglobin (HGBA1C) 3861.0674 umol/L
[2025-06-06 11:14] LABS: Prostate Specific Antigen 1.47 ng/mL (<0.05-4.0)
[2025-06-12 12:54] LABS: Testosterone, Free 44.6 pg/mL (35.0-155.0)
== END 2025-06-06 09:21 | disposition home or self-care (01) ==
LOC: HO.LAB 09:20
PROVIDERS: PCP Physician Assistant Medical; Visit Provider Nurse Practitioner Family
DX: E11.9 Type 2 diabetes mellitus without complications (principal); N52.9 Male erectile dysfunction, unspecified; Z12.5 Encounter for screening for malignant neoplasm of prostate
CPT/HCPCS: 36415; 83036; 84153; 84402; 84403

== ENCOUNTER 2025-07-04 14:46 | Outpatient (REF) | payer OTHER, SELFPAY ==
--- NOTE | ~2025-07-04 | US_ITS ---
EXAMINATION: US RETROPERITONEAL LIMITED (RENAL ONLY) CLINICAL INFORMATION: Calculus of kidney. COMPARISON: None available. TECHNIQUE: Routine retroperitoneal imaging of kidneys is performed. FINDINGS: RIGHT KIDNEY: 14.2 x 6.8 x 7.7 cm (SAG x AP x TRV). The kidney is normal in size, contour, and echogenicity. Renal cortical thickness is normal. There are multiple anechoic cysts seen throughout the kidneys. A few largest measured are as follows upper pole 3.5 x 3.0 x 3.8 cm. Midpole 3.9 x 2.7 x 3.3 cm. Lower pole 2.0 x 2.7 x 2.9 cm. Also visualized are multiple echogenic foci largest in the upper pole measuring 0.4 x 0.3 x 0.3 cm and mid pole measuring 0.5 x 0.2 x 0.6 cm. No hydronephrosis. LEFT KIDNEY: 13.5 x 8.6 x 5.9 cm (SAG x AP x TRV). The kidney is normal in size, contour, and echogenicity. Renal cortical thickness is normal. There are multiple anechoic cysts. Largest measuring 3.8 x 2.1 x 3.4 cm in upper pole, 3.5 x 2.5 x 3.7 cm in midpole, lower pole medially measuring 7.5 x 6.3 x 7.8 cm and lower pole lateral measuring 6.0 x 5.4 x 6.0 cm. Also visualized are multiple echogenic foci the largest measuring 0.6 x 0.3 x 0.4 cm in upper pole and 0.3 x 0.2 x 0.3 cm in midpole. No hydronephrosis. Incidental finding of calcification in the right hepatic lobe measuring 0.7 x 0.5 x 0.5 cm. US/US renal BI IMPRESSION: Bilateral multiple anechoic renal cysts and multiple echogenic calcifications. Question polycystic kidney disease. There is no hydronephrosis in either kidneys. Incidental finding of calcifications in the right hepatic lobe. . Electronically signed by: Philip Velazquez MD 07/05/2025 07:13 AM EDT
--- OUTSIDE RECORDS SUMMARY | 2025-07-04 20:13 | XMS_ITS | Clinical Summary ---
Author Organization [facility] [address] [facility] Address [address] [place] [phone] Phone Care Team Providers Care Director [employer] Name Role Phone Diaz Jennings Primary Care Provider [phone] [phone] Allergies No known active allergies Medications atorvastatin [...] (one) time each day. 30 each 12/13/2024 Active hydroCHLOROthia zide (HYDRODIURIL) 25 mg tablet Take 1 tablet (25 mg total) by mouth 1 (one) time each day. 30 each 12/13/2024 Active cyclobenzaprine (FLEXERIL) 10 mg tablet Take [...] Encounters Date Type Department Care Team Description 06/15/2025 Telephone Adult Medicine [address] [phone] Jess Eisenberg [place] 05/23/[address] [phone] Cindy Alvarez [place] 05/19/2025 Telephone Adult Medicine [address] [phone] Diaz Jennings PA 04/29/[address] [phone] Lorri Mondragon MD from Last 3 Months Immunizations Name Administration [...] 6mo and older 07/25/2015,07/22/2014,08/05/2013 Influenza, Unspecified 07/26/2016,12/02/2012 [email or web address] SARS-CoV-2 COVID-19, mRNA, LNP-S, preservative free 03/02/2021,02/10/2021 [...] for your loved ones. For example, child and family services worker or elderly care for an older adult? [...] 8:00 AM EDT Office Visit Adult Medicine [address] [phone] Diaz Jennings PA [address] [place] [phone] 07/22/2025 10:00 AM EDT Consult Adult Medicine [address] [phone] Juli Guerrero MD [address] [place], [place] 07/25/2025 10:00 AM EDT Office Visit Pulmonolgy - [place] [address] [place] [phone] Lorri Mondragon MD [address] [place] [phone] Health Maintenance Due Date Last Done Comments Pneumococcal Vaccine: 50+ Years (1 of 1 - PCV) 2011 Colorectal Cancer Screening: Colonoscopy 09/28/2022 HIV Screening 09/28/2022 COVID-19 Vaccine ( season) 2025 03/02/2021, 02/10/2021 Influenza Vaccine (#1) 2025 , [...] Procedure Name Priority Date/Time Associated Diagnosis Comments EXTERNAL CLINICAL LAB 06/06/2025 EXTERNAL CLINICAL LAB 06/06/2025 COMPREHENSIVE METABOLIC PANEL Routine 12/13/2024 8:54 AM EST Screening for malignant neoplasm of colon Primary hypertension LIPID PANEL WITH REFLEX TO DIRECT LDL Routine 12/13/2024 8:54 AM EST Screening for malignant neoplasm of colon Primary hypertension HEPATITIS C SCREENING Routine 06/12/2019 from Last 3 Months or Most Recently Relevant to Health Maintenance Results * External clinical lab (06/06/2025) Only the most recent of2 resultswithin the time period is included. Provider [facility] LAB BLOOD ORDERABLES Fin al Result * (ABNORMAL) Lipid panel with reflex to direct LDL (12/13/2024 8:54 AM EST) Cholesterol 175 0 - 200 mg/dL LAB CHEMISTRY METHOD 12/13/2024 1:30 PM EST [facility] Triglycerides 99 0 - 150 mg/dL LAB CHEMISTRY METHOD 12/13/2024 1:30 PM EST [facility] HDL 52 >=40 mg/dL LAB CHEMISTRY METHOD 12/13/2024 1:30 PM EST [facility] LDL Calculated 103(H) 0 - 100 mg/dL LAB CHEMISTRY METHOD 12/13/2024 1:30 PM EST [facility] VLDL Cholesterol Omkar 19.8 mg/dL LAB CHEMISTRY METHOD 12/13/2024 1:30 PM EST [facility] Non HDL Chol. (LDL+VLDL) 123 <145 mg/dL LAB CHEMISTRY METHOD 12/13/2024 1:30 PM EST [facility] Chol/HDL Ratio 3.4 0.0 - 4.4 LAB CHEMISTRY METHOD 12/13/2024 1:30 PM EST [facility] Blood Venous blood specimen / Unknown Venipuncture / Unknown 12/13/2024 8:54 AM EST 12/13/2024 8:54 AM EST Diaz JONES LAB BLOOD ORDERABLES Jeannie l Result [facility] [address] [place] [address], [place] [phone] * (ABNORMAL) Comprehensive metabolic panel (12/13/2024 8:54 AM EST) Sodium 141 133 - 145 mmol/L LAB CHEMISTRY METHOD 12/13/2024 1:30 PM [facility] Potassium 3.8 3.5 - 5.5 mmol/L LAB CHEMISTRY METHOD 12/13/2024 1:30 PM [facility] Chloride 109 96 - 110 mmol/L LAB CHEMISTRY METHOD 12/13/2024 1:30 PM [facility] CO2 24 21 - 32 mmol/L LAB CHEMISTRY METHOD 12/13/2024 1:30 PM [facility] Anion Gap 8 3 - 11 LAB CHEMISTRY METHOD 12/13/2024 1:30 PM [facility] Glucose 107(H) 70 - 100 mg/dL LAB CHEMISTRY METHOD 12/13/2024 1:30 PM [facility] BUN 21 5 - 25 mg/dL LAB CHEMISTRY METHOD 12/13/2024 1:30 PM [facility] Creatinine 1.42(H) 0.70 - 1.30 mg/dL LAB CHEMISTRY METHOD 12/13/2024 1:30 PM [facility] eGFR 56(L) >=60 mL/min/1. 73m2 LAB CHEMISTRY METHOD 12/13/2024 1:30 PM [facility] Comment:Calculation based on the Chronic Kidney Disease Epidemiology Collaboration (CKD-EPI) equation refit without adjustment for race. BUN/Creatinine Ratio 14.8 LAB CHEMISTRY METHOD 12/13/2024 1:30 PM [facility] Calcium 9.0 8.5 - 10.5 mg/dL LAB CHEMISTRY METHOD 12/13/2024 1:30 PM [facility] AST (SGOT) 20 10 - 42 unit/L LAB CHEMISTRY METHOD 12/13/2024 1:30 PM [facility] ALT (SGPT) 32 10 - 60 unit/L LAB CHEMISTRY METHOD 12/13/2024 1:30 PM EST [facility] Alkaline Phosphatase 55 42 - 121 unit/L LAB CHEMISTRY METHOD 12/13/2024 1:30 PM [facility] Total Protein 8.3(H) 6.0 - 8.0 g/dL LAB CHEMISTRY METHOD 12/13/2024 1:30 PM EST [facility] Albumin 4.2 3.2 - 5.0 g/dL LAB CHEMISTRY METHOD 12/13/2024 1:30 PM [facility] Total Bilirubin 1.2 0.0 - 1.4 mg/dL LAB CHEMISTRY METHOD 12/13/2024 1:30 PM [facility] Blood Venous blood specimen / Unknown Venipuncture / Unknown 12/13/2024 8:54 AM EST 12/13/2024 8:54 AM EST Diaz JONES LAB BLOOD ORDERABLES Jeannie l Result [facility] [address] [place] [address], * Hepatitis C Screening (06/12/2019) Pathologist [facility] Hepatitis C Screening Abstracted Historical Provider HEALTH MAINTENANCE Final Result from Last 3 Months or Most Recently Relevant to Health Maintenance Insurance [facility] [employer] Care Teams Director [employer] Relationship Specialty Start Date End Date Diaz Jennings PA [address] [place] [id number] PCP - General Internal Medicine 02/06/21
== END 2025-07-04 14:47 | disposition home or self-care (01) ==
LOC: HO.US 14:46
PROVIDERS: PCP Physician Assistant Medical; Visit Provider Nurse Practitioner Family
DX: N20.0 Calculus of kidney (principal)
CPT/HCPCS: 76775

== ENCOUNTER → 2025-07-04 14:48 | Outpatient (BNV) | payer OTHER, SELFPAY | PROVIDERS: PCP Physician Assistant Medical; Visit Provider Radiology Diagnostic Radiology | DX: N28.1 Cyst of kidney, acquired (principal) | CPT/HCPCS: 76775 ==